=== PATIENT | female | born 1985 | race Asian ===

== ENCOUNTER 2016-09-07 00:06 | Inpatient (IN) | payer SELFPAY ==
[~2016-09-07] VITALS: Ht 152.4 cm; Wt 57.2 kg
[2016-09-07] MEDS ORDERED: PRENATAL VITAMI1 TA2 PO (01:09)
[2016-09-07] MEDS ORDERED: OSCAL500 MG PO (01:10)
[2016-09-07] MEDS ORDERED: NATURAL IRON65 MG PO (01:11)
[2016-09-07] MEDS ORDERED: OXYTOCIN 20 UNITS/LR PREMIX 1,000 ML IV SCH (01:12)
[2016-09-07] MEDS ORDERED: LACTATED RINGERS 1,000 ML IV SCH (01:12)
[2016-09-07] MEDS ORDERED: PROMETHAZINE 25 MG/ML VIAL IVP PRN (01:15)
[2016-09-07] MEDS ORDERED: METHYLERGONOVINE 0.2 MG/ML AMP IM SCH (01:15)
[2016-09-07] MEDS ORDERED: NALBUPHINE 10 MG/ML AMP IVP PRN (01:15)
[2016-09-07] MEDS ORDERED: CARBOPROST 250 MCG/ML AMP IM PRN (01:15)
[2016-09-07] MEDS ORDERED: ROPIVACAINE 0.2%/NS PREMIX 250 ML EPI ONE (01:44)
[2016-09-07] MEDS ORDERED: ROPIVACAINE 0.2%/NS PREMIX 250 ML EPI SCH (02:10)
[2016-09-07 03:38] VITALS: BP 108/71
[2016-09-07] MEDS ORDERED: OXYTOCIN 20 UNITS/LR PREMIX 1,000 ML IV ONE (03:45)
[2016-09-07] MEDS ORDERED: OXYTOCIN 10 UNITS/ML VIAL IM SCH (08:00)
--- NOTE | 2016-09-07 09:16 | NUR ---
PATIENT HAS BEEN SCREENED AND CATEGORIZED LOW NUTRITION RISK. PATIENT WILL BE SEEN WITHIN 7 DAYS OF ADMISSION. 09/13/[address]
[2016-09-07] MEDS ORDERED: OXYTOCIN 10 UNITS/ML VIAL ONE (09:19)
[2016-09-07] MEDS ORDERED: TEMAZEPAM 15 MG CAP PO PRN (15:00)
[2016-09-07] MEDS ORDERED: oxyCODONE/APAP 5/325 MG 1 TAB TAB PO PRN (15:00)
[2016-09-07] MEDS ORDERED: WITCH HAZEL 40 PAD PACKAGE TP PRN (15:00)
[2016-09-07] MEDS ORDERED: HYDROcodone/APAP 5/325 MG 1 TAB TAB PO PRN (15:00)
[2016-09-07] MEDS ORDERED: IBUPROFEN 800 MG TAB PO PRN (15:00)
[2016-09-07] MEDS ORDERED: BENZOCAINE/MENTHOL 20%-0.5% 60 GM CAN TP PRN (15:00)
[2016-09-07] MEDS ORDERED: METHYLERGONOVINE 0.2 MG/ML AMP IM PRN (15:00)
[2016-09-07] MEDS ORDERED: MEASLES, MUMPS, AND RUBELLA 1 VIAL SQVAC PRN (15:00)
[2016-09-07] MEDS ORDERED: DOCUSATE SOD/SENNA 50/8.6 MG 1 TAB PO SCH (21:00)
[2016-09-07] MEDS ORDERED: INFLUENZA VIRUS VACCINE QUAD 0.5 ML SYR IMVAC SCH ×2 (22:00→23:15)
[2016-09-07] MEDS: IBUPROFEN 800 MG TAB PO PRN (22:57)
[2016-09-08] MEDS: IBUPROFEN 800 MG TAB PO PRN (09:03)
[2016-09-09] MEDS: IBUPROFEN 800 MG TAB PO PRN ×2 (00:08→06:50)
== END 2016-09-09 13:50 | disposition home or self-care (01) | DRG 775 ==
LOC: MLD 00:06 → MFCC 16:15 → PREOBSVTOIN 09-17 00:14
PROVIDERS: ADMIT Obstetrics & Gynecology; ATTEND Obstetrics & Gynecology
PROC: 10E0XZZ Delivery of Products of Conception, External Approach (ICD-10-PCS; principal; 2016-09-07)
PROC: 0KQM0ZZ Repair Perineum Muscle, Open Approach (ICD-10-PCS; 2016-09-07)
PROC: 00HU33Z Insertion of Infusion Device into Spinal Canal, Percutaneous Approach (ICD-10-PCS; 2016-09-07)
PROC: 3E0R3CZ (ICD-10-PCS; 2016-09-07)
PROC: 3E0P7GC Introduction of Other Therapeutic Substance into Female Reproductive, Via Natural or Artificial Opening (ICD-10-PCS; 2016-09-07)
PROC: 3E0234Z Introduction of Serum, Toxoid and Vaccine into Muscle, Percutaneous Approach (ICD-10-PCS; 2016-09-08)
DX: O69.1XX0 Labor and delivery complicated by cord around neck, with compression, not applicable or unspecified (principal); O77.0 Labor and delivery complicated by meconium in amniotic fluid; O69.89X0 Labor and delivery complicated by other cord complications, not applicable or unspecified; O70.1 Second degree perineal laceration during delivery; Z3A.39 39 weeks gestation of pregnancy; Z37.0 Single live birth; Z23 Encounter for immunization